=== PATIENT | female | born 1935 | race American Indian/Alaskan Native ===

== ENCOUNTER 2022-04-10 08:02 | Inpatient (IN) | payer MEDICARE ==
--- NOTE | 2022-04-10 10:28 | XRay Report ---
CHEST 1 VIEW 04/10/2022 9:18 AM INDICATION / CLINICAL INFORMATION: chest pain. COMPARISON: Radiograph 3:15 FINDINGS: SUPPORT DEVICES: None. HEART / MEDIASTINUM: Median sternotomy wires are present. There is moderate cardiomegaly. Central pul monary vascular prominence. LUNGS / PLEURA: Diffuse interstitial prominence as well as fissural thickening. No pneumothorax. ADDITIONAL FINDINGS: No significant additional findings. IMPRESSION: 1. Cardiomegaly with pulmonary edema, indicative of CHF. Superimposed pneumonia cannot be excluded. Signer Name: Elmo Mendez MD Signed: 04/10/2022 10:24 AM Workstation Name: [id number]
--- NOTE | 2022-04-10 10:36 | Emergency Department Report ---
<ALYSE CLOUDMALKA - Last Filed: 04/10/22 10:31> ED Chest Pain HPI - General Chief Complaint: Chest Pain Stated Complaint: HYPERTENSIVE CRISIS Time Seen by Provider: 04/10/22 09:37 Source: patient, EMS Mode of arrival: Stretcher Limitations: No Limitations - History of Present Illness Initial Comments: 86-year-old female with a history of COPD, CAD s/p open heart surgery and remote smoking history who now presents with shortness of breath associated with chest pressure that started this morning. Patient has history of end-stage renal disease started dialysis about a year ago. Patient reported that the pain start ed shortly when she was getting ready for dialysis this morning. Her daughter from [place] usually sent in uber Drive that take her to dialysis on every Wednesday and Fridays. This morning the daughter called and she told that daughter that she was not feeling well and could not breathe. And instead of the uber laundry route driver taking her to the dialysis they brought to the emergency room. Patient denies any fever or chills. No other modifying or associated factors noted. MD Complaint: chest pain, other (sob) Severity scale (0 -10): 0 - Related Data Home Medications Medication Instructions Recorded Confirmed Last Taken Aspirin [Aspirin BABY CHEW TAB] 162 mg PO QDAY 10/01/14 10/01/14 09/30/14 Atorvastatin [Lipitor] 20 mg PO QHS 10/01/14 10/01/14 09/30/14 Colchicine [Colcrys] 0.6 mg PO DAILY 10/01/14 10/01/14 09/30/14 Ergocalciferol [Vitamin D2] 1 cap PO QWEEK 10/01/14 10/01/14 09/30/14 Insulin Regular, Human [HumuLIN R] 15 units SUB-Q QAM 10/01/14 10/01/14 09/30/14 Insulin Regular, Human [HumuLIN R] 17 unit SUB-Q QHS 10/01/14 10/01/14 09/30/14 Metoprolol [Lopressor TAB] 50 mg PO BID 10/01/14 10/01/14 09/30/14 Valsartan/Hydrochlorothiazide 1 each PO QDAY 10/01/14 10/01/14 09/30/14 [Valsartan-Hctz 160-12.5 mg] amLODIPine [Norvasc] 10 mg PO DAILY 10/01/14 10/01/14 09/30/14 cloNIDine [Catapres] 0.2 mg PO BID 10/01/14 10/01/14 09/30/14 Previous Rx's Medication Instructions Recorded Last Taken Type Albuterol Sulfate [Ventolin HFA] 2 puff IH Q4H PRN #1 hfa.aer.ad 10/01/14 Unknown Rx levoFLOXacin [Levaquin] 250 mg PO QDAY #7 tablet 10/01/14 Unknown Rx predniSONE [Deltasone] 40 mg PO QDAY 5 Days tab 10/01/14 Unknown Rx Allergies Allergy/AdvReac Type Severity Reaction Status Date / Time codeine AdvReac Itching Verified 09/30/14 23:41 morphine AdvReac Itching Verified 09/30/14 23:41 Heart Score - HEART Score History: Slightly suspicious EKG: Non-specific Age: > 65 Risk factors: 1-2 risk factors Troponin: < normal limit HEART Score: 4 - EKG Read Time Time EKG Completed: 10:01 EKG Read Time: 10:13 - Critical Actions Critical Actions: 4-6 pts:12-16.6% risk of adverse cardiac event. Should be admitted ED Review of Systems Comment: All other systems reviewed and negative Respiratory: shortness of breath, SOB at rest Cardiovascular: chest pain, dyspnea on exertion ED Past Medical Hx - Past Medical History Hx Hypertension: Yes Hx Heart Attack/AMI: Yes Hx Diabetes: Yes Hx Renal Disease: Yes (HD [facility]) - Surgical History Hx Open Heart Surgery: Yes (CABG 2002) Hx Cholecystectomy: Yes Additional Surgical History: back surgery - Social History Smoking Status: Former Smoker Substance Use Type: None - Medications Home Medications: Home Medications Medication Instructions Recorded Confirmed Last Taken Type Albuterol Sulfate [Ventolin HFA] 2 puff IH Q4H PRN #1 hfa.aer.ad 10/01/14 Unknown Rx Aspirin [Aspirin BABY CHEW TAB] 162 mg PO QDAY 10/01/14 10/01/14 09/30/14 History Atorvastatin [Lipitor] 20 mg PO QHS 10/01/14 10/01/14 09/30/14 History Colchicine [Colcrys] 0.6 mg PO DAILY 10/01/14 10/01/14 09/30/14 History Ergocalciferol [Vitamin D2] 1 cap PO QWEEK 10/01/14 10/01/14 09/30/14 History Insulin Regular, Human [HumuLIN R] 15 units SUB-Q QAM 10/01/14 10/01/14 09/30/14 History Insulin Regular, Human [HumuLIN R] 17 unit SUB-Q QHS 10/01/14 10/01/14 09/30/14 History Metoprolol [Lopressor TAB] 50 mg PO BID 10/01/14 10/01/14 09/30/14 History Valsartan/Hydrochlorothiazide 1 each PO QDAY 10/01/14 10/01/14 09/30/14 History [Valsartan-Hctz 160-12.5 mg] amLODIPine [Norvasc] 10 mg PO DAILY 10/01/14 10/01/14 09/30/14 History cloNIDine [Catapres] 0.2 mg PO BID 10/01/14 10/01/14 09/30/14 History levoFLOXacin [Levaquin] 250 mg PO QDAY #7 tablet 10/01/14 Unknown Rx predniSONE [Deltasone] 40 mg PO QDAY 5 Days tab 10/01/14 Unknown Rx ED Physical Exam - General Limitations: No Limitations General appearance: alert, in no apparent distress - Head Head exam: Present: atraumatic, normal inspection - Eye Eye exam: Present: normal appearance Pupils: Present: normal accommodation - ENT ENT exam: Present: normal exam, normal orophraynx, mucous membranes dry - Neck Neck exam: Present: normal inspection. Absent: tenderness - Respiratory Respiratory exam: Present: respiratory distress, wheezes, accessory muscle use - Cardiovascular Cardiovascular Exam: Present: regular rate, normal rhythm, normal heart sounds - GI/Abdominal GI/Abdominal exam: Present: soft, normal bowel sounds. Absent: distended, tenderness - Extremities Exam Extremities exam: Present: normal inspection, normal capillary refill. Absent: tenderness, pedal edema - Back Exam Back exam: Absent: tenderness - Neurological Exam Neurological exam: Present: alert, oriented X3 - Psychiatric Psychiatric exam: Present: normal affect, normal mood - Skin Skin exam: Present: warm, normal color TOBY score - Toby Score Age > 65: (1) Yes Aspirin use within the Past 7 Days: (1) Yes 3 or more CAD Risk Factors: (1) Yes 2 or more Angina events in past 24 hrs: (0) No Known CAD with more than 50% Stenosis: (1) Yes Elevated Cardiac Markers: (0) No ST Deviation Greater than 0.5mm: (0) No TOBY Score: 4 ED Medical Decision Making - EKG Data -: EKG Interpreted by Me EKG shows normal: sinus rhythm, ST-T waves Rate: normal - EKG Data 04/10/22 10:38 Noted with normal sinus rhythm at a rate of 84 bpm, with nonspecific T wave abnormality in this abnormal ECG. - Medical Decision Making Here with shortness of breath--among differential diagnosis could be but not limited to acute exacerbation of COPD, myocardiac infarction, pulmonary embolism, acute exacerbation of asthma, pneumothorax, pneumonia or Viral or Bacterial Upper/Lower respiratory tract infection or other systemic infection.--To rule out the above will go ahead and order EKG, cardiac enzyme including troponin, BNP, CKMB, chest x-ray, CBC, CMP, UA and or D-dimer. In the meantime we will go ahead and treat with DuoNeb, 125 mg of Solu-Medrol, magnesium sulfate 2 g IV, and will monitor as likely cause to be acute COPD exacerbation. ED Disposition Clinical Impression: Wheezing Chest pain Qualifiers: Chest pain type: unspecified Qualified Code(s): R07.9 - Chest pain, unspecified Pulmonary edema Qualifiers: Chronicity: acute Qualified Code(s): J81.0 - Acute pulmonary edema Dyspnea Qualifiers: Dyspnea type: unspecified Qualified Code(s): R06.00 - Dyspnea, unspecified Disposition: ADMITTED INPATIENT Does the pt Need Aspirin: No Condition: Stable <PATRICIA SOLARES - Last Filed: 04/10/22 23:26> ED Review of Systems ROS: Stated complaint: HYPERTENSIVE CRISIS Other details as noted in HPI ED Course Vital Signs 04/10/22 04/10/22 04/10/22 08:06 08:18 08:31 Temperature 99.4 F Pulse Rate 98 H 85 89 Pulse Rate [ Anterior] Respiratory 20 19 24 Rate Respiratory Rate [Anterior] Blood Pressure 191/95 Blood Pressure 210/114 [Left] O2 Sat by Pulse 100 Oximetry 04/10/22 04/10/22 04/10/22 09:01 09:31 10:00 Temperature Pulse Rate 80 79 77 Pulse Rate [ Anterior] Respiratory 21 22 20 Rate Respiratory Rate [Anterior] Blood Pressure 179/112 190/89 190/89 Blood Pressure [Left] O2 Sat by Pulse Oximetry 04/10/22 04/10/22 04/10/22 10:31 11:01 11:31 Temperature Pulse Rate 76 78 77 Pulse Rate [ Anterior] Respiratory 22 12 24 Rate Respiratory Rate [Anterior] Blood Pressure 195/92 198/97 198/97 Blood Pressure [Left] O2 Sat by Pulse 100 100 99 Oximetry 04/10/22 04/10/22 04/10/22 12:01 12:30 12:31 Temperature Pulse Rate 75 77 Pulse Rate [ 70 Anterior] Respiratory 18 21 Rate Respiratory 18 Rate [Anterior] Blood Pressure 198/97 198/97 Blood Pressure [Left] O2 Sat by Pulse 100 100 Oximetry 04/10/22 04/10/22 04/10/22 13:01 13:30 14:01 Temperature Pulse Rate 83 80 81 Pulse Rate [ Anterior] Respiratory 12 15 21 Rate Respiratory Rate [Anterior] Blood Pressure 205/103 184/90 191/95 Blood Pressure [Left] O2 Sat by Pulse 100 100 100 Oximetry 04/10/22 04/10/22 04/10/22 14:31 15:01 15:31 Temperature Pulse Rate 81 77 82 Pulse Rate [ Anterior] Respiratory 19 22 15 Rate Respiratory Rate [Anterior] Blood Pressure 190/98 189/94 190/98 Blood Pressure [Left] O2 Sat by Pulse 100 100 100 Oximetry 04/10/22 04/10/22 04/10/22 16:01 17:01 18:01 Temperature Pulse Rate 78 86 80 Pulse Rate [ Anterior] Respiratory 17 24 17 Rate Respiratory Rate [Anterior] Blood Pressure 176/96 199/94 172/85 Blood Pressure [Left] O2 Sat by Pulse 100 94 95 Oximetry 04/10/22 04/10/22 04/10/22 19:00 19:01 19:05 Temperature 98.6 F Pulse Rate 81 81 Pulse Rate [ Anterior] Respiratory 21 20 Rate Respiratory Rate [Anterior] Blood Pressure 187/86 Blood Pressure 187/86 [Left] O2 Sat by Pulse 98 96 98 Oximetry 04/10/22 04/10/22 04/10/22 20:01 21:01 21:45 Temperature Pulse Rate 75 Pulse Rate [ Anterior] Respiratory Rate Respiratory Rate [Anterior] Blood Pressure 184/97 204/100 196/93 Blood Pressure [Left] O2 Sat by Pulse 97 94 Oximetry 04/10/22 22:01 Temperature Pulse Rate Pulse Rate [ Anterior] Respiratory Rate Respiratory Rate [Anterior] Blood Pressure 196/93 Blood Pressure [Left] O2 Sat by Pulse 95 Oximetry ED Medical Decision Making - Lab Data Result diagrams: 04/10/22 Unknown 04/10/22 Unknown Lab Results 04/10/22 04/10/22 04/10/22 Range/Units 14:26 15:45 18:25 Sodium 135 L (137-145) mmol/L Potassium 4.1 (3.6-5.0) mmol/L Chloride 95.7 L (98-107) mmol/L Carbon Dioxide 16 L (22-30) mmol/L Anion Gap 27 mmol/L BUN 51 H (7-17) mg/dL Creatinine 6.9 H (0.6-1.2) mg/dL Estimated GFR 7 ml/min BUN/Creatinine Ratio 7 % Glucose 234 H (65-100) mg/dL Calcium 9.4 (8.4-10.2) mg/dL Magnesium (1.7-2.3) mg/dL Total Bilirubin 0.80 (0.1-1.2) mg/dL AST 20 (5-40) units/L ALT 10 (7-56) units/L Alkaline Phosphatase 75 (35-129) units/L Troponin T 0.045 H 0.044 H (0.00-0.029) ng/mL NT-Pro-B Natriuret Pep 39183 H (0-900) pg/mL Total Protein 7.8 (6.3-8.2) g/dL Albumin 4.2 (3.9-5) g/dL Albumin/Globulin Ratio 1.2 % TSH (0.270-4.200) mlU/mL Free T4 (0.76-1.46) ng/dL 04/10/22 04/10/22 04/10/22 Range/Units 18:25 18:25 18:25 Sodium (137-145) mmol/L Potassium (3.6-5.0) mmol/L Chloride (98-107) mmol/L Carbon Dioxide (22-30) mmol/L Anion Gap mmol/L BUN (7-17) mg/dL Creatinine (0.6-1.2) mg/dL Estimated GFR ml/min BUN/Creatinine Ratio % Glucose (65-100) mg/dL Calcium (8.4-10.2) mg/dL Magnesium 2.70 H (1.7-2.3) mg/dL Total Bilirubin (0.1-1.2) mg/dL AST (5-40) units/L ALT (7-56) units/L Alkaline Phosphatase (35-129) units/L Troponin T 0.042 H (0.00-0.029) ng/mL NT-Pro-B Natriuret Pep (0-900) pg/mL Total Protein (6.3-8.2) g/dL Albumin (3.9-5) g/dL Albumin/Globulin Ratio % TSH 1.020 (0.270-4.200) mlU/mL Free T4 0.87 (0.76-1.46) ng/dL - Radiology Data Radiology results: report reviewed CHEST 1 VIEW 04/10/2022 9:18 AM INDICATION / CLINICAL INFORMATION: chest pain. COMPARISON: Radiograph 3:15 FINDINGS: SUPPORT DEVICES: None. HEART / MEDIASTINUM: Median sternotomy wires are present. There is moderate cardiomegaly. Central pulmonary vascular prominence. LUNGS / PLEURA: Diffuse interstitial prominence as well as fissural thickening. No pneumothorax. ADDITIONAL FINDINGS: No significant additional findings. IMPRESSION: 1. Cardiomegaly with pulmonary edema, indicative of CHF. Superimposed pneumonia cannot be excluded. Critical care attestation.: If time is entered above; I have spent that time in minutes in the direct care of this critically ill patient, excluding procedure time. ED Disposition Is pt being admited?: Yes
[2022-04-10] MEDS ORDERED: IPRATROPIUM/ALBUTEROL SULFATE 3 ML AMPUL.NEB IH ONE (10:43)
[2022-04-10] MEDS ORDERED: MAGNESIUM SULFATE 2 GM/50 ML BAG IV ONE (10:43)
[2022-04-10] MEDS ORDERED: methylPREDNISolone Sod Succinate 125 MG/2 ML INJ IV ONE (10:43)
[2022-04-10 12:40] LABS: Basophils # (Auto) 0.1 K/mm3 (0.0-0.1); Basophils % (Auto) 1.4 % (0.0-1.8); Eosinophils # (Auto) 0.1 K/mm3 (0.0-0.4); Eosinophils % (Auto) 0.7 % (0.0-4.3); Hematocrit 33.4 % (30.3-42.9); Hemoglobin 11.2 gm/dl (10.1-14.3); Lymphocytes # (Auto) 1.1 K/mm3 (1.2-5.4); Lymphocytes % (Auto) 11.8 % (13.4-35.0); Mean Corpuscular HGB Conc 34 % (30-34); Mean Corpuscular Volume 88 fl (79-97); Monocytes # (Auto) 0.5 K/mm3 (0.0-0.8); Monocytes % (Auto) 5.9 % (0.0-7.3); Platelet Count 254 K/mm3 (140-440); Red Blood Count 3.81 M/mm3 (3.65-5.03)
[2022-04-10 13:45] LABS: BUN/Creatinine Ratio TNR; Blood Urea Nitrogen TNR mg/dL (7-17); Calcium TNR mg/dL (8.4-10.2)
[2022-04-10 13:46] LABS: Alanine Aminotransferase TNR units/L (7-56); Albumin TNR g/dL (3.9-5)
[2022-04-10 13:47] LABS: Chol/HDL Ratio TNR %; HDL Cholesterol TNR mg/dL (40-59); Hemolysis Index TNR; LDL Cholesterol,Direct TNR mg/dL (50-130)
--- NOTE | 2022-04-10 18:36 | Emergency Department Report ---
ED Shortness of Breath HPI - General Chief Complaint: Chest Pain Stated Complaint: HYPERTENSIVE CRISIS Time Seen by Provider: 04/10/22 09:37 Source: patient, EMS Mode of arrival: Stretcher Limitations: No Limitations - History of Present Illness Initial Comments: 86-year female the past medical history of end-stage renal disease on dialysis Wednesday, Wednesday, diabetes, CAD with history of CABG, and previous cholecystectomy presents to the hospital with complaints of shortness of breath and chest tightness this morning. Patient was initially seen by Dr. Lewis without a clear disposition and I was asked to reevaluate and the patient by the charge nurse. At time of my evaluation patient reports that she is feeling better since her initial presentation. As documented by Dr. Lewis patient initially had wheezing and respiratory distress. She was treated for COPD with bronchodilators, magnesium, and Solu-Medrol. She is currently breathing at a n ormal rate with a room air saturation of 96%. Patient denies a known history of COPD, home oxygen use, wheezing, or bronchodilator use. Her chest tightness has improved with treatment. Her initial labs were hemolyzed and therefore I ordered a repeat. Chest x-ray significant for pulmonary edema. Patient also received IV labetalol with improvement of hypertension. patient's corporate communications associate is Dr. Wayne Mild troponin elevation noted but stable x2. Third troponin ordered. BNP and CMP ordered since initial sample was hemolyzed and not redrawn. - Related Data Home Medications Medication Instructions Recorded Confirmed Last Taken Aspirin [Aspirin BABY CHEW TAB] 162 mg PO QDAY 10/01/14 10/01/14 09/30/14 Atorvastatin [Lipitor] 20 mg PO QHS 10/01/14 10/01/14 09/30/14 Colchicine [Colcrys] 0.6 mg PO DAILY 10/01/14 10/01/14 09/30/14 Ergocalciferol [Vitamin D2] 1 cap PO QWEEK 10/01/14 10/01/14 09/30/14 Insulin Regular, Human [HumuLIN R] 15 units SUB-Q QAM 10/01/14 10/01/14 09/30/14 Insulin Regular, Human [HumuLIN R] 17 unit SUB-Q QHS 10/01/14 10/01/14 09/30/14 Metoprolol [Lopressor TAB] 50 mg PO BID 10/01/14 10/01/14 09/30/14 Valsartan/Hydrochlorothiazide 1 each PO QDAY 10/01/14 10/01/14 09/30/14 [Valsartan-Hctz 160-12.5 mg] amLODIPine [Norvasc] 10 mg PO DAILY 10/01/14 10/01/14 09/30/14 cloNIDine [Catapres] 0.2 mg PO BID 10/01/14 10/01/14 09/30/14 Previous Rx's Medication Instructions Recorded Last Taken Type Albuterol Sulfate [Ventolin HFA] 2 puff IH Q4H PRN #1 hfa.aer.ad 10/01/14 Unknown Rx levoFLOXacin [Levaquin] 250 mg PO QDAY #7 tablet 10/01/14 Unknown Rx predniSONE [Deltasone] 40 mg PO QDAY 5 Days tab 10/01/14 Unknown Rx Allergies Allergy/AdvReac Type Severity Reaction Status Date / Time codeine AdvReac Itching Verified 09/30/14 23:41 morphine AdvReac Itching Verified 09/30/14 23:41 ED Review of Systems ROS: Stated complaint: HYPERTENSIVE CRISIS Other details as noted in HPI Comment: All other systems reviewed and negative Respiratory: shortness of breath, SOB at rest Cardiovascular: chest pain, dyspnea on exertion ED Past Medical Hx - Past Medical History Hx Hypertension: Yes Hx Heart Attack/AMI: Yes Hx Diabetes: Yes Hx Renal Disease: Yes (HD ) - Surgical History Hx Open Heart Surgery: Yes (CABG 2002) Hx Cholecystectomy: Yes Additional Surgical History: back surgery - Social History Smoking Status: Former Smoker Substance Use Type: None - Medications Home Medications: Home Medications Medication Instructions Recorded Confirmed Last Taken Type Albuterol Sulfate [Ventolin HFA] 2 puff IH Q4H PRN #1 hfa.aer.ad 10/01/14 Unknown Rx Aspirin [Aspirin BABY CHEW TAB] 162 mg PO QDAY 10/01/14 10/01/14 09/30/14 History Atorvastatin [Lipitor] 20 mg PO QHS 10/01/14 10/01/14 09/30/14 History Colchicine [Colcrys] 0.6 mg PO DAILY 10/01/14 10/01/14 09/30/14 History Ergocalciferol [Vitamin D2] 1 cap PO QWEEK 10/01/14 10/01/14 09/30/14 History Insulin Regular, Human [HumuLIN R] 15 units SUB-Q QAM 10/01/14 10/01/14 09/30/14 History Insulin Regular, Human [HumuLIN R] 17 unit SUB-Q QHS 10/01/14 10/01/14 09/30/14 History Metoprolol [Lopressor TAB] 50 mg PO BID 10/01/14 10/01/14 09/30/14 History Valsartan/Hydrochlorothiazide 1 each PO QDAY 10/01/14 10/01/14 09/30/14 History [Valsartan-Hctz 160-12.5 mg] amLODIPine [Norvasc] 10 mg PO DAILY 10/01/14 10/01/14 09/30/14 History cloNIDine [Catapres] 0.2 mg PO BID 10/01/14 10/01/14 09/30/14 History levoFLOXacin [Levaquin] 250 mg PO QDAY #7 tablet 10/01/14 Unknown Rx predniSONE [Deltasone] 40 mg PO QDAY 5 Days tab 10/01/14 Unknown Rx ED Physical Exam - General Limitations: No Limitations General appearance: alert, in no apparent distress - Other Other exam information: General: No acute distress Head: Atraumatic Eyes: normal appearance ENT: Moist mucous membranes Neck: Normal appearance, no midline tenderness Chest: No tachypnea, no wheezing, bilateral crackles CV: Regular rate and rhythm Abdomen: Soft, normal bowel sounds, nontender, nondistended, no rebound or guarding Back: Normal inspection Extremity: No calf tenderness or leg edema Neuro: Alert O x 3, no facial asymmetry, speech clear, no gross motor sensory deficit Psych: Appropriate behavior Skin: No rash ED Course Vital Signs 04/10/22 04/10/22 04/10/22 08:06 08:18 08:31 Temperature 99.4 F Pulse Rate 98 H 85 89 Pulse Rate [ Anterior] Respiratory 20 19 24 Rate Respiratory Rate [Anterior] Blood Pressure 191/95 Blood Pressure 210/114 [Left] O2 Sat by Pulse 100 Oximetry 04/10/22 04/10/22 04/10/22 09:01 09:31 10:00 Temperature Pulse Rate 80 79 77 Pulse Rate [ Anterior] Respiratory 21 22 20 Rate Respiratory Rate [Anterior] Blood Pressure 179/112 190/89 190/89 Blood Pressure [Left] O2 Sat by Pulse Oximetry 04/10/22 04/10/22 04/10/22 10:31 11:01 11:31 Temperature Pulse Rate 76 78 77 Pulse Rate [ Anterior] Respiratory 22 12 24 Rate Respiratory Rate [Anterior] Blood Pressure 195/92 198/97 198/97 Blood Pressure [Left] O2 Sat by Pulse 100 100 99 Oximetry 04/10/22 04/10/22 04/10/22 12:01 12:30 12:31 Temperature Pulse Rate 75 77 Pulse Rate [ 70 Anterior] Respiratory 18 21 Rate Respiratory 18 Rate [Anterior] Blood Pressure 198/97 198/97 Blood Pressure [Left] O2 Sat by Pulse 100 100 Oximetry 04/10/22 04/10/22 04/10/22 13:01 13:30 14:01 Temperature Pulse Rate 83 80 81 Pulse Rate [ Anterior] Respiratory 12 15 21 Rate Respiratory Rate [Anterior] Blood Pressure 205/103 184/90 191/95 Blood Pressure [Left] O2 Sat by Pulse 100 100 100 Oximetry 04/10/22 04/10/22 04/10/22 14:31 15:01 15:31 Temperature Pulse Rate 81 77 82 Pulse Rate [ Anterior] Respiratory 19 22 15 Rate Respiratory Rate [Anterior] Blood Pressure 190/98 189/94 190/98 Blood Pressure [Left] O2 Sat by Pulse 100 100 100 Oximetry 04/10/22 04/10/22 04/10/22 16:01 19:00 19:05 Temperature 98.6 F Pulse Rate 78 81 Pulse Rate [ Anterior] Respiratory 17 21 Rate Respiratory Rate [Anterior] Blood Pressure 176/96 Blood Pressure 187/86 [Left] O2 Sat by Pulse 100 98 98 Oximetry - Consultations Consultation #1: 04/10/22 20:48 Case was discussed with corporate communications associate Belkys Iyer who agrees to admit patient for dialysis given signs of pulmonary edema and presentation with respiratory distress. Since symptoms have improved at this time we will perform dialysis tomorrow. Sodium bicarb 1300 mg 3 times daily recommend ED Medical Decision Making - Lab Data Result diagrams: 04/10/22 Unknown 04/10/22 Unknown - EKG Data -: EKG Interpreted by Me (Original EKG performed at 10 AM) EKG shows normal: sinus rhythm, ST-T waves (No STEMI) Rate: normal - Medical Decision Making 86-year female presents to the hospital early this morning with wheezing and shortness of breath responsive to treatment for COPD. Patient reports improvement in symptoms. At this time she has bilateral crackles and x-ray findings of pulmonary edema. Case discussed with corporate communications associate who agrees to perform dialysis tomorrow. Patient also complained of chest pain earlier today which is likely secondary to wheezing and shortness of breath episode. Troponin has remained stable without acute elevation in the ED with repeat blood draw. Case discussed with the hospitalist for admission. Bag Machine Tender recommends sodium bicarb tabs 1300 mg 3 times daily. Order placed Critical care attestation.: If time is entered above; I have spent that time in minutes in the direct care of this critically ill patient, excluding procedure time. ED Disposition Clinical Impression: Pulmonary edema, Wheezing Chest pain Qualifiers: Chest pain type: unspecified Qualified Code(s): R07.9 - Chest pain, unspecified Dyspnea Qualifiers: Dyspnea type: unspecified Qualified Code(s): R06.00 - Dyspnea, unspecified Disposition: ADMITTED INPATIENT Is pt being admited?: Yes Condition: Stable Instructions: Pulmonary Edema (ED) Time of Disposition: 20:46
[2022-04-10 19:00] LABS: Albumin 4.2 g/dL (3.9-5); Calcium 9.4 mg/dL (8.4-10.2)
--- NOTE | 2022-04-10 20:45 | History and Physical Report ---
History of Present Illness Chief complaint: I cannot breathe History of present illness: 86 YO Female with DM, ESRD on HD(M,W,F), CAD S/P CABG, PR, HTN, OA, Vascular Dementia, Cerebral Atherosclerosis presents to ED for evaluation. Patient reports "I cannot breathe". Patient states she has experienced shortness of b reath of the past 1 week with persistent and worsening symptoms over the same timeframe. Patient knowledges missed dialysis sessions. Patient reports decreased exercise tolerance, dyspnea on exertion, dyspnea at rest, orthopnea, paroxysmal nocturnal dyspnea, 10 pound weight gain over the past week. Patient knowledges increased nebulizer use without improvement in symptoms. Patient subsequent failed outpatient therapy. EMS was notified and upon arrival the patient was found to be in distress and subsequent transported to [facility] for further care and evaluation of the aforementioned symptoms. The patient was seen and evaluated emergency department. All lab and imaging studies reviewed. Patient found to have clinical symptoms consistent with new onset CHF decompensation as well as end-stage renal disease complicated by fluid overload secondary to missed dialysis, pulmonary edema, hyponatremia, metabolic acidosis. Patient mated to telemetry and initiated on CHF protocol. Cardiology team consulted in ED. Nephrology team consulted in ED for urgent dialysis. Patient denies fever, chills, chest pain, palpitation, adductive cough, skin rash, recent contact, known exposure to COVID-19. No prior admission for review. All medication listed at time of admission as reconciled. Advanced care planning conducted in ED. Past History Past Medical History: arthritis, CAD, ESRD, hypertension, other (See HPI) Past Surgical History: cholecystectomy, CABG, Other (Back surgery, dialysis access) Social history: . denies: smoking, alcohol abuse, prescription drug abuse Family history: diabetes, hypertension Medications and Allergies Allergies Allergy/AdvReac Type Severity Reaction Status Date / Time codeine AdvReac Itching Verified 09/30/14 23:41 morphine AdvReac Itching Verified 09/30/14 23:41 Home Medications Medication Instructions Recorded Confirmed Last Taken Type Albuterol Sulfate [Ventolin HFA] 2 puff IH Q4H PRN #1 hfa.aer.ad 10/01/14 Unknown Rx Aspirin [Aspirin BABY CHEW TAB] 162 mg PO QDAY 10/01/14 10/01/14 09/30/14 History Atorvastatin [Lipitor] 20 mg PO QHS 10/01/14 10/01/14 09/30/14 History Colchicine [Colcrys] 0.6 mg PO DAILY 10/01/14 10/01/14 09/30/14 History Ergocalciferol [Vitamin D2] 1 cap PO QWEEK 10/01/14 10/01/14 09/30/14 History Insulin Regular, Human [HumuLIN R] 15 units SUB-Q QAM 10/01/14 10/01/14 09/30/14 History Insulin Regular, Human [HumuLIN R] 17 unit SUB-Q QHS 10/01/14 10/01/14 09/30/14 History Metoprolol [Lopressor TAB] 50 mg PO BID 10/01/14 10/01/14 09/30/14 History Valsartan/Hydrochlorothiazide 1 each PO QDAY 10/01/14 10/01/14 09/30/14 History [Valsartan-Hctz 160-12.5 mg] amLODIPine [Norvasc] 10 mg PO DAILY 10/01/14 10/01/14 09/30/14 History cloNIDine [Catapres] 0.2 mg PO BID 10/01/14 10/01/14 09/30/14 History levoFLOXacin [Levaquin] 250 mg PO QDAY #7 tablet 10/01/14 Unknown Rx predniSONE [Deltasone] 40 mg PO QDAY 5 Days tab 10/01/14 Unknown Rx Active Meds: Active Medications Sodium Bicarbonate (Sodium Bicarbonate 650 Mg Tab) 1,300 mg PO TID DRAKE Review of Systems Constitutional: weight gain, no weight loss, no fever, no chills, no sweats Ears, nose, mouth and throat: no ear pain, no ear discharge, no decreased hearing, no nasal congestion, no sinus pressure Breasts: no change in shape, no swelling, no mass Cardiovascular: orthopnea, shortness of breath, dyspnea on exertion, paroxysmal nocturnal dyspnea, high blood pressure, leg edema, decreased exercise tolerance, no chest pain Respiratory: no cough, no cough with sputum, no excessive sputum Gastrointestinal: no abdominal pain, no nausea, no vomiting, no constipation Genitourinary Female: no pelvic pain, no flank pain, no dysuria, no urinary frequency, no urgency Rectal: no pain, no incontinence, no bleeding Musculoskeletal: no neck stiffness, no shooting arm pain, no arm numbness/tingling, no shooting leg pain, no redness of joints Integumentary: no rash, no pruritis, no wounds, no jaundice Neurological: no head injury, no paralysis, no weakness Psychiatric: no anxiety, no change in sleep habits, no change in appetite Endocrine: no cold intolerance, no polyphagia, no polyuria, no excessive sweating, no weight change Allergic/Immunologic: no allergic rhinitis, no wheezing Exam - Constitutional Vitals: Temp Pulse Resp BP Pulse Ox 98.6 F 81 21 187/86 98 04/10/22 19:00 04/10/22 19:00 04/10/22 19:00 04/10/22 19:00 04/10/22 19:05 General appearance: Present: mild distress - EENT Eyes: Present: PERRL ENT: hearing intact, clear oral mucosa - Neck Neck: Present: supple, normal ROM, masses or JVD - Respiratory Respiratory: bilateral: rales - Cardiovascular Heart Sounds: Present: S1 & S2. Absent: rub, click - Extremities Extremities: no ischemia Extremity abnormal: edema Peripheral Pulses: within normal limits - Abdominal General gastrointestinal: Present: soft, non-tender, non-distended, normal bowel sounds Female genitourinary: Present: normal - Integumentary Integumentary: Present: clear, warm, dry - Musculoskeletal Musculoskeletal: generalized weakness - Psychiatric Psychiatric: appropriate mood/affect, intact judgment & insight - Neurologic Neurologic: CNII-XII intact, moves all extremities HEART Score - HEART Score EKG: Non-specific Age: > 65 Risk factors: 1-2 risk factors Troponin: Troponin T TNR 04/10/22 Unknown Troponin: < normal limit - Critical Actions Critical Actions: 4-6 pts:12-16.6% risk of adverse cardiac event. Should be admitted Results - Labs CBC & Chem 7: 04/10/22 Unknown 04/10/22 Unknown Labs: Abnormal lab results 04/10/22 04/10/22 04/10/22 Range/Units 14:26 15:45 18:25 RDW (13.2-15.2) % Lymph % (Auto) (13.4-35.0) % Lymph # (Auto) (1.2-5.4) K/mm3 Seg Neutrophils % (40.0-70.0) % Sodium 135 L (137-145) mmol/L Chloride 95.7 L (98-107) mmol/L Carbon Dioxide 16 L (22-30) mmol/L BUN 51 H (7-17) mg/dL Creatinine 6.9 H (0.6-1.2) mg/dL Glucose 234 H (65-100) mg/dL Troponin T 0.045 H 0.044 H (0.00-0.029) ng/mL NT-Pro-B Natriuret Pep 03039 H (0-900) pg/mL 04/10/22 04/10/22 Range/Units 18:25 Unknown RDW 17.0 H (13.2-15.2) % Lymph % (Auto) 11.8 L (13.4-35.0) % Lymph # (Auto) 1.1 L (1.2-5.4) K/mm3 Seg Neutrophils % 80.2 H (40.0-70.0) % Sodium (137-145) mmol/L Chloride (98-107) mmol/L Carbon Dioxide (22-30) mmol/L BUN (7-17) mg/dL Creatinine (0.6-1.2) mg/dL Glucose (65-100) mg/dL Troponin T 0.042 H (0.00-0.029) ng/mL NT-Pro-B Natriuret Pep (0-900) pg/mL Assessment and Plan - Patient Problems (1) Systolic CHF Current Visit: Yes Status: Acute Qualifiers: Heart failure chronicity: acute Qualified Code(s): I50.21 - Acute systolic (congestive) heart failure Plan to address problem: Strict I/O, monitor urine output every shift, daily weight, afterload reduction, blood pressure control, thyroid panel, diuresis, magnesium level, echocardiogram ordered and pending at time of admission, cardiology team consulted. (2) End stage renal disease Current Visit: Yes Status: Acute Plan to address problem: Nephrology team consulted in ED, dialysis as per renal team, monitor fluid balance, avoid nephrotoxic agents. (3) Fluid overload Current Visit: Yes Status: Acute Plan to address problem: Monitor fluid balance, urgent dialysis. (4) Hyponatremia syndrome Current Visit: Yes Status: Acute Plan to address problem: Supportive care, BMP, repeat BMP in AM. (5) Metabolic acidosis Current Visit: Yes Status: Acute Plan to address problem: Bicarbonate therapy. Nephrology team consulted. (6) Vascular dementia Current Visit: Yes Status: Acute Qualifiers: Dementia behavioral disturbance: without behavioral disturbance Qualified Code(s): F01.50 - Vascular dementia without behavioral disturbance Plan to address problem: Verbal prompting, verbal redirection, benzodiazepine therapy as clinically indicated. (7) Cerebral atherosclerosis Current Visit: Yes Status: Acute Plan to address problem: Risk factor reduction, antiplatelet therapy as clinically indicated. (8) Pulmonary edema Current Visit: Yes Status: Acute Qualifiers: Chronicity: acute Qualified Code(s): J81.0 - Acute pulmonary edema Plan to address problem: Urgent dialysis, diuretic therapy, supportive care, repeat chest x-ray in a.m. as clinically indicated. Supplemental oxygen, pulse oximetry. (9) Hypertension Current Visit: Yes Status: Acute Qualifiers: Hypertension type: primary hypertension Qualified Code(s): I10 - Essential (primary) hypertension Plan to address problem: Monitor blood pressure every shift, continue medical management. (10) Diabetes Current Visit: Yes Status: Acute Plan to address problem: Consistent carbohydrate diet, Accu-Chek, insulin protocol, hypoglycemia protocol. (11) Coronary artery disease Current Visit: Yes Status: Acute Plan to address problem: Risk factor reduction therapy, antiplatelet therapy as clinically indicated. (12) DVT prophylaxis Current Visit: Yes Status: Acute Plan to address problem: SCD to bilateral lower extremities while in bed (13) Advance care planning Current Visit: Yes Status: Acute Plan to address problem: Disease education done, care plan discussed, diagnoses discussed, prognosis discussed, patient is full code. +30 minutes. (14) Preventative health care Current Visit: Yes Status: Acute Plan to address problem: Patient counseled regarding home safety precautions, risk factor reduction, outpatient follow-up with primary care physician for all age and risk factor appropriate screening test. +30 minutes.
[2022-04-10] MEDS ORDERED: MORPHINE 4 MG/1 ML INJ IV PRN (20:46)
[2022-04-10] MEDS ORDERED: ALBUTEROL 2.5 MG/3 ML NEBU IH PRN (20:46)
[2022-04-10] MEDS ORDERED: ONDANSETRON 4 MG/2 ML INJ IV PRN (20:46)
[2022-04-10] MEDS ORDERED: ACETAMINOPHEN 325 MG TAB PO PRN (20:46)
[2022-04-10] MEDS ORDERED: DEXTROSE 50% IN WATER (25GM) 50 ML SYRINGE IV PRN (20:58)
[2022-04-10] MEDS: cloNIDine 0.2 MG TAB PO SCH (21:45)
[2022-04-10] MEDS: METOPROLOL TARTRATE 50 MG TAB PO SCH (21:48)
[2022-04-10 21:55] LABS: Free T4 (Free Thyroxine) 0.87 ng/dL (0.76-1.46)
[2022-04-10] MEDS: INSULIN LISPRO 100 UNIT/ML SUB-Q SCH (22:06)
[2022-04-11] MEDS: FUROSEMIDE 20 MG/2 ML INJ IV SCH ×2 (06:15→17:13)
[2022-04-11] MEDS: oxyCODONE /ACETAMINOPHEN 5-325MG TAB PO PRN (06:51)
[2022-04-11 07:12] LABS: Calcium 9.1 mg/dL (8.4-10.2)
[2022-04-11] MEDS: INSULIN LISPRO 100 UNIT/ML SUB-Q SCH ×4 (08:00→21:55)
[2022-04-11] MEDS ORDERED: SODIUM CHLORIDE 0.9% 100 ML IV PRN (09:07)
[2022-04-11] MEDS ORDERED: COLCHICINE 0.6 MG TAB PO SCH (10:00)
--- NOTE | 2022-04-11 10:00 | Progress Note ---
Assessment and Plan Assessment and plan: 86 YO Female with DM, ESRD on HD(M,W,F), CAD S/P CABG, DC, HTN, OA, Vascular Dementia, Cerebral Atherosclerosis presents to ED for evaluation of shortness of breath of the past 1 week secondary to missed dialysis sessions. Patient found to have clinical symptoms consistent with end-stage renal disease complicated by fluid overload secondary to missed dialysis/pulmonary edema. ESRD Volume overload/pulmonary edema Hyponatremia Vascular dementia Cerebral atherosclerosis Hypertension Diabetes mellitus type 2 Coronary artery disease 04/11/2022. The patient will receive hemodialysis per nephrology recommendations. Follow-up echocardiogram to assess left ventricular function. I do not suspect the patient has acute new onset CHF and the volume overload/pulmonary edema is secondary to missed hemodialysis. However, as noted above, we will follow-up echocardiogram. History Interval history: No new issues overnight Hospitalist Physical - Constitutional Vitals: Temp Pulse Resp BP Pulse Ox 97.7 F 67 16 127/52 100 04/11/22 03:46 04/11/22 03:46 04/11/22 03:46 04/11/22 03:46 04/11/22 09:16 General appearance: Present: no acute distress - EENT Eyes: Present: PERRL, EOM intact ENT: hearing intact, clear oral mucosa, dentition normal - Neck Neck: Present: supple, normal ROM - Respiratory Respiratory effort: normal Respiratory: bilateral: CTA - Cardiovascular Rhythm: regular Heart Sounds: Present: S1 & S2. Absent: gallop, rub - Extremities Extremities: no ischemia, No edema, Full ROM - Abdominal General gastrointestinal: soft, non-tender, non-distended, normal bowel sounds - Integumentary Integumentary: Present: clear, warm, dry - Neurologic Neurologic: CNII-XII intact, moves all extremities HEART Score - HEART Score EKG: Non-specific Age: > 65 Risk factors: 1-2 risk factors Troponin: Troponin T TNR 04/10/22 Unknown Troponin: < normal limit - Critical Actions Critical Actions: 4-6 pts:12-16.6% risk of adverse cardiac event. Should be admitted Results - Labs CBC & Chem 7: 04/10/22 Unknown 04/11/22 05:47 Labs: Laboratory Last Values WBC 8.9 K/mm3 (4.5-11.0) 04/10/22 Unknown RBC 3.81 M/mm3 (3.65-5.03) 04/10/22 Unknown Hgb 11.2 gm/dl (10.1-14.3) 04/10/22 Unknown Hct 33.4 % (30.3-42.9) 04/10/22 Unknown MCV 88 fl (79-97) 04/10/22 Unknown MCH 29 pg (28-32) 04/10/22 Unknown MCHC 34 % (30-34) 04/10/22 Unknown RDW 17.0 % (13.2-15.2) H 04/10/22 Unknown Plt Count 254 K/mm3 (140-440) 04/10/22 Unknown Lymph % (Auto) 11.8 % (13.4-35.0) L 04/10/22 Unknown [place] % (Auto) 5.9 % (0.0-7.3) 04/10/22 Unknown Eos % (Auto) 0.7 % (0.0-4.3) 04/10/22 Unknown Baso % (Auto) 1.4 % (0.0-1.8) 04/10/22 Unknown Lymph # (Auto) 1.1 K/mm3 (1.2-5.4) L 04/10/22 Unknown [place] # (Auto) 0.5 K/mm3 (0.0-0.8) 04/10/22 Unknown Eos # (Auto) 0.1 K/mm3 (0.0-0.4) 04/10/22 Unknown Baso # (Auto) 0.1 K/mm3 (0.0-0.1) 04/10/22 Unknown Seg Neutrophils % 80.2 % (40.0-70.0) H 04/10/22 Unknown Seg Neutrophils # 7.2 K/mm3 (1.8-7.7) 04/10/22 Unknown Sodium 136 mmol/L (137-145) L 04/11/22 05:47 Potassium 4.3 mmol/L (3.6-5.0) 04/11/22 05:47 Chloride 98.7 mmol/L (98-107) 04/11/22 05:47 Carbon Dioxide 19 mmol/L (22-30) L 04/11/22 05:47 Anion Gap 23 mmol/L 04/11/22 05:47 BUN 59 mg/dL (7-17) H 04/11/22 05:47 Creatinine 7.7 mg/dL (0.6-1.2) H 04/11/22 05:47 Estimated GFR 6 ml/min 04/11/22 05:47 BUN/Creatinine Ratio 8 % 04/11/22 05:47 Glucose 108 mg/dL (65-100) H 04/11/22 05:47 POC Glucose 260 mg/dL (70-105) H 04/10/22 21:54 Calcium 9.1 mg/dL (8.4-10.2) 04/11/22 05:47 Magnesium 2.70 mg/dL (1.7-2.3) H 04/10/22 18:25 Total Bilirubin TNR 04/10/22 Unknown AST TNR 04/10/22 Unknown ALT TNR 04/10/22 Unknown Alkaline Phosphatase TNR 04/10/22 Unknown Troponin T TNR 04/10/22 Unknown NT-Pro-B Natriuret Pep 76679 pg/mL (0-900) H 04/10/22 18:25 Total Protein TNR 04/10/22 Unknown Albumin TNR 04/10/22 Unknown Albumin/Globulin Ratio TNR 04/10/22 Unknown Triglycerides TNR 04/10/22 Unknown Cholesterol TNR 04/10/22 Unknown LDL Cholesterol Direct TNR 04/10/22 Unknown HDL Cholesterol TNR 04/10/22 Unknown Cholesterol/HDL Ratio TNR 04/10/22 Unknown TSH 1.020 mlU/mL (0.270-4.200) 04/10/22 18:25 Free T4 0.87 ng/dL (0.76-1.46) 04/10/22 18:25 Simon/IV: Voiding Method Toilet Active Medications - Current Medications Current Medications: Generic Name Dose Route Start Last Admin Trade Name Freq PRN Reason Stop Dose Admin Acetaminophen 650 mg 04/10/22 20:46 Acetaminophen 325 Mg Tab PO Q4H PRN Pain MILD(1-3)/Fever >100.5/SMITH Albuterol 2.5 mg 04/10/22 20:46 Albuterol 2.5 Mg/3 Ml Nebu IH Q4HRT PRN Shortness Of Breath Amlodipine Besylate 10 mg 04/11/22 10:00 Amlodipine 10 Mg Tab PO DAILY DRAKE Aspirin 162 mg 04/11/22 10:00 Aspirin 81 Mg Tab Chew PO QDAY DRAKE Atorvastatin Calcium 20 mg 04/10/22 22:00 04/10/22 21:48 Atorvastatin 40 Mg Tab PO 20 mg QHS DRAKE Administration Clonidine HCl 0.2 mg 04/10/22 22:00 04/10/22 21:45 Clonidine 0.2 Mg Tab PO 0.2 mg BID DRAKE Administration Colchicine 0.6 mg 04/11/22 10:00 Colchicine 0.6 Mg Tab PO DAILY DRAKE Dextrose 0 ml 04/10/22 20:58 Dextrose 50% In Water (25gm) 50 Ml Syringe IV Q30MIN PRN Hypoglycemia Protocol Ergocalciferol unit 04/17/22 10:00 Ergocalciferol (Vit D2) 50,000 Unit Cap PO QWEEK DRAKE Furosemide 20 mg 04/11/22 06:00 04/11/22 06:15 Furosemide 20 Mg/2 Ml Inj IV 20 mg BID@0600,1800 DRAKE Administration Sodium Chloride 100 mls @ 999 mls/hr 04/11/22 09:07 Nacl 0.9% IV DRU PRN Hypotension Insulin Human Lispro 0 unit 04/10/22 22:00 04/10/22 22:06 Insulin Lispro 100 Unit/Ml SUB-Q 4 unit ACHS DRAKE Administration Protocol Metoprolol Tartrate 50 mg 04/10/22 22:00 04/10/22 21:48 Metoprolol Tartrate 50 Mg Tab PO 50 mg BID@0800,1700 DRAKE Administration Ondansetron HCl 4 mg 04/10/22 20:46 Ondansetron 4 Mg/2 Ml Inj IV Q8H PRN Nausea And Vomiting Oxycodone/Acetaminophen 1 tab 04/10/22 20:46 04/11/22 06:51 Oxycodone /Acetaminophen 5-325mg Tab PO 1 tab Q6H PRN Administration Pain, Moderate (4-6) Sodium Bicarbonate 1,300 mg 04/11/22 08:00 Sodium Bicarbonate 650 Mg Tab PO TID DRAKE Sodium Chloride 10 ml 04/10/22 22:00 04/10/22 21:51 Sodium Chloride 0.9% 10 Ml Flush Syringe IV 10 ml BID DRAKE Administration Sodium Chloride 10 ml 04/10/22 20:46 Sodium Chloride 0.9% 10 Ml Flush Syringe IV PRN PRN LINE FLUSH Valsartan 160 mg 04/11/22 10:00 Valsartan 160mg Tab PO QDAY DRAKE
[2022-04-11] MEDS: SODIUM BICARBONATE 650 MG TAB PO SCH ×3 (10:29→21:55)
[2022-04-11] MEDS: VALSARTAN 160MG TAB PO SCH (10:29)
[2022-04-11] MEDS: METOPROLOL TARTRATE 50 MG TAB PO SCH ×2 (10:29→17:13)
[2022-04-11] MEDS: cloNIDine 0.2 MG TAB PO SCH ×2 (10:30→21:55)
[2022-04-11] MEDS: amLODIPine 10 MG TAB PO SCH (10:30)
[2022-04-11] MEDS: ASPIRIN 81 MG TAB CHEW PO SCH (10:31)
[2022-04-11 12:47] LABS: Hepatitis B Surface Antigen Non-Reactive (Negative); Hepatitis C Virus Antibody Non-Reactive (NonReactive)
--- NOTE | 2022-04-11 14:45 | Event Note ---
Date: 04/11/22 Upon assessment, pt states she is followed by Dr. Boone with [facility]. Will transfer to their service for further cardiac mgmt.
--- NOTE | 2022-04-11 21:34 | Consultation ---
History of Present Illness - Reason for Consult Consult date: 04/11/22 end stage renal disease - History of Present Illness This is a 86-year-old woman with end-stage renal disease on hemodialysis MWF, diabetes, hypertension, coronary artery disease status post CABG who presented to the emergency department with shortness of breath for the past 1 week. She also noted missing several dialysis sessions. Nephrology was consulted for ESRD management. Patient denies chest pain, presyncope and syncope. Past History Past Medical History: arthritis, CAD, ESRD, hypertension, other (See HPI) Past Surgical History: cholecystectomy, CABG, Other (Back surgery, dialysis access) Social history: . denies: smoking, alcohol abuse, prescription drug abuse Family history: diabetes, hypertension Medications and Allergies Allergies Allergy/AdvReac Type Severity Reaction Status Date / Time codeine AdvReac Itching Verified 09/30/14 23:41 morphine AdvReac Itching Verified 09/30/14 23:41 Home Medications Medication Instructions Recorded Confirmed Last Taken Type Albuterol Sulfate [Ventolin HFA] 2 puff IH Q4H PRN #1 hfa.aer.ad 10/01/14 04/11/22 Unknown Rx Aspirin [Aspirin BABY CHEW TAB] 162 mg PO QDAY 10/01/14 04/11/22 09/30/14 History Atorvastatin [Lipitor] 20 mg PO QHS 10/01/14 04/11/22 09/30/14 History Colchicine [Colcrys] 0.6 mg PO DAILY 10/01/14 04/11/22 09/30/14 History Ergocalciferol [Vitamin D2] 1 cap PO QWEEK 10/01/14 04/11/22 09/30/14 History Insulin Regular, Human [HumuLIN R] 15 units SUB-Q QAM 10/01/14 04/11/22 09/30/14 History Insulin Regular, Human [HumuLIN R] 17 unit SUB-Q QHS 10/01/14 04/11/22 09/30/14 History Metoprolol [Lopressor TAB] 50 mg PO BID 10/01/14 04/11/22 09/30/14 History Valsartan/Hydrochlorothiazide 1 each PO QDAY 10/01/14 04/11/22 09/30/14 History [Valsartan-Hctz 160-12.5 mg] amLODIPine [Norvasc] 10 mg PO DAILY 10/01/14 04/11/22 09/30/14 History cloNIDine [Catapres] 0.2 mg PO BID 10/01/14 04/11/22 09/30/14 History levoFLOXacin [Levaquin] 250 mg PO QDAY #7 tablet 10/01/14 04/11/22 Unknown Rx predniSONE [Deltasone] 40 mg PO QDAY 5 Days tab 10/01/14 04/11/22 Unknown Rx Active Meds: Active Medications Acetaminophen (Acetaminophen 325 Mg Tab) 650 mg PO Q4H PRN PRN Reason: Pain MILD(1-3)/Fever >100.5/SMITH Albuterol (Albuterol 2.5 Mg/3 Ml Nebu) 2.5 mg IH Q4HRT PRN PRN Reason: Shortness Of Breath Amlodipine Besylate (Amlodipine 10 Mg Tab) 10 mg PO DAILY [facility] Last Admin: 04/11/22 10:30 Dose: 10 mg Aspirin (Aspirin 81 Mg Tab Chew) 162 mg PO QDAY [facility] Last Admin: 04/11/22 10:31 Dose: 162 mg Atorvastatin Calcium (Atorvastatin 40 Mg Tab) 20 mg PO QHS [facility] Last Admin: 04/10/22 21:48 Dose: 20 mg Clonidine HCl (Clonidine 0.2 Mg Tab) 0.2 mg PO BID [facility] Last Admin: 04/11/22 10:30 Dose: 0.2 mg Colchicine (Colchicine 0.6 Mg Tab) 0.6 mg PO DAILY [facility] Last Admin: 04/11/22 17:13 Dose: 0.6 mg Dextrose (Dextrose 50% In Water (25gm) 50 Ml Syringe) 0 ml IV Q30MIN PRN; Protocol PRN Reason: Hypoglycemia Ergocalciferol (Ergocalciferol (Vit D2) 50,000 Unit Cap) 50,000 unit PO Sa [facility] Furosemide (Furosemide 20 Mg/2 Ml Inj) 20 mg IV BID@0600,1800 [facility] Last Admin: 04/11/22 17:13 Dose: 20 mg Sodium Chloride (Nacl 0.9%) 100 mls @ 999 mls/hr IV DRU PRN PRN Reason: Hypotension Insulin Human Lispro (Insulin Lispro 100 Unit/Ml) 0 unit SUB-Q ACHS DRAKE; P rotocol Last Admin: 04/11/22 16:00 Dose: Not Given Metoprolol Tartrate (Metoprolol Tartrate 50 Mg Tab) 50 mg PO BID@0800,1700 [facility] Last Admin: 04/11/22 17:13 Dose: 50 mg Ondansetron HCl (Ondansetron 4 Mg/2 Ml Inj) 4 mg IV Q8H PRN PRN Reason: Nausea And Vomiting Oxycodone/Acetaminophen (Oxycodone /Acetaminophen 5-325mg Tab) 1 tab PO Q6H PRN PRN Reason: Pain, Moderate (4-6) Last Admin: 04/11/22 06:51 Dose: 1 tab Sodium Bicarbonate (Sodium Bicarbonate 650 Mg Tab) 1,300 mg PO TID [facility] Last Admin: 04/11/22 12:59 Dose: 1,300 mg Sodium Chloride (Sodium Chloride 0.9% 10 Ml Flush Syringe) 10 ml IV BID [facility] Last Admin: 04/11/22 10:36 Dose: 10 ml Sodium Chloride (Sodium Chloride 0.9% 10 Ml Flush Syringe) 10 ml IV PRN PRN PRN Reason: LINE FLUSH Valsartan (Valsartan 160mg Tab) 160 mg PO QDAY [facility] Last Admin: 04/11/22 10:29 Dose: 160 mg Review of Systems All systems: negative Respiratory: shortness of breath Exam - Vital Signs Vital signs: Vital Signs Temp Pulse Resp BP Pulse Ox 99.4 F 98 H 20 210/114 100 04/10/22 08:06 04/10/22 08:06 04/10/22 08:06 04/10/22 08:06 04/10/22 08:06 - Physical Exam Narrative exam: Constitutional: no acute distress Head: NC/AT Neck: supple Lungs: clear to auscultation CV: RRR, no M/R/G Abdomen: soft, non-tender, bowel sounds present Back: nontender Extremities: no edema, pulses WNL Skin: intact Neuro: no focal deficits, alert and oriented x4 Results - Lab Results 04/10/22 Unknown 04/11/22 05:47 Most recent lab results Calcium 9.1 mg/dL (8.4-10.2) 04/11/22 05:47 Magnesium 2.70 mg/dL (1.7-2.3) H 04/10/22 18:25 Assessment and Plan End-stage renal disease on hemodialysis Essential hypertension Anemia of ESRD Hyperphosphatemia Hyperparathyroidism Hemodialysis today Assess daily for needs for additional sessions of dialysis Continue antihypertensives Hold antihypertensives on hemodialysis days for systolics less than 160 Continue binders Epogen with HD as needed Renally dose medications ESRD diet with 1.2-1. 4 g/kg/d protein intake Recommend avoiding chronic use of colchicine
[2022-04-11] MEDS ORDERED: ERGOCALCIFEROL (VIT D2) 50,000 UNIT CAP PO SCH (22:00)
[2022-04-12] MEDS: oxyCODONE /ACETAMINOPHEN 5-325MG TAB PO PRN (00:09)
[2022-04-12] MEDS: cloNIDine 0.2 MG TAB PO SCH ×2 (04:23→11:51)
[2022-04-12] MEDS: FUROSEMIDE 20 MG/2 ML INJ IV SCH (05:53)
--- NOTE | 2022-04-12 07:30 | Discharge Summary ---
Providers - Providers Date of Admission: 04/10/22 20:47 Date of discharge: 04/12/22 Attending physician: ELY HERRMANN 04/10/22 20:21 Consult to Physician [CONS] Urgent Comment: Consulting Provider: VALORIE COLLINS Physician Instructions: Reason For Exam: esrd, missed dialysis, pulm edema 04/10/22 20:46 Consult to Physician [CONS] Routine Comment: Consulting Provider: EMILIANO TRIVEDI Physician Instructions: Reason For Exam: chf 04/11/22 04:30 Consult to Dietitian/Nutrition [CONS] Routine Physician Instructions: Reason For Exam: Reason for Consult: Poor oral intake 04/11/22 14:46 Consult to Cardiology [CONS] Routine Consulting Provider: NATHALY HILARIO Reason For Exam: [facility] consulted for CHF, pt followed by Dr Hilario Primary care physician: MICHELLE SHUKLA Hospitalization Reason for admission: missed HD Condition: Stable Hospital course: 86 YO Female with DM, ESRD on HD(M,W,F), CAD S/P CABG, [place], HTN, OA, Vascular Dementia, Cerebral Atherosclerosis presents to ED for evaluation of shortness of breath of the past 1 week secondary to missed dialysis sessions. Patient found to have clinical symptoms consistent with end-stage renal disease complicated by fluid overload secondary to missed dialysis/pulmonary edema. The patient was admitted with diagnosis below: ESRD Volume overload/pulmonary edema Hyponatremia Vascular dementia Cerebral atherosclerosis Hypertension Diabetes mellitus type 2 Coronary artery disease 04/11/2022. The patient will receive hemodialysis per nephrology recommendations. Follow-up echocardiogram to assess left ventricular function. I do not suspect the patient has acute new onset CHF and the volume overload/pulmonary edema is secondary to missed hemodialysis. However, as noted above, we will follow-up echocardiogram. 04/12/2022. Patient received hemodialysis and had resolution of volume overload/pulmonary edema. Echocardiogram was completed and can be followed up as an outpatient. Patient is back to baseline respiratory status. Patient is felt to have received maximal hospital benefit and will be discharged home. Dedicated discharge time 32 minutes Final Discharge Diagnosis (Prints w/discharge instructions): ESRD with missed HD. Medical noncompliance. Volume overload/pulmonary edema. Hyponatremia. Vascular dementia. Cerebral atherosclerosis. Hypertension. Diabetes mellitus type 2. Coronary artery disease Core Measure Documentation - Palliative Care Palliative Care/ Comfort Measures: Not Applicable - Core Measures Any of the following diagnoses?: none Exam - Constitutional Vitals: Temp Pulse Resp BP Pulse Ox 98.6 F 62 16 170/79 100 04/12/22 04:03 04/12/22 04:03 04/12/22 04:03 04/12/22 04:35 04/12/22 04:03 General appearance: Present: no acute distress, well-nourished - EENT Eyes: Present: PERRL ENT: hearing intact, clear oral mucosa - Neck Neck: Present: supple, normal ROM - Respiratory Respiratory effort: normal Respiratory: bilateral: CTA - Cardiovascular Heart Sounds: Present: S1 & S2. Absent: rub, click - Extremities Extremities: pulses symmetrical, No edema Peripheral Pulses: within normal limits - Abdominal General gastrointestinal: Present: soft, non-tender, non-distended, normal bowel sounds Female genitourinary: Present: normal - Integumentary Integumentary: Present: clear, warm, dry - Musculoskeletal Musculoskeletal: gait normal, strength equal bilaterally - Psychiatric Psychiatric: appropriate mood/affect, intact judgment & insight - Neurologic Neurologic: CNII-XII intact, moves all extremities Plan Activity: advance as tolerated Weight Bearing Status: Weight Bear as Tolerated Diet: renal
[2022-04-12] MEDS: INSULIN LISPRO 100 UNIT/ML SUB-Q SCH ×2 (08:19→11:30)
[2022-04-12] MEDS: METOPROLOL TARTRATE 50 MG TAB PO SCH (08:41)
[2022-04-12 11:44] VITALS: BP 165/75
[2022-04-12] MEDS: VALSARTAN 160MG TAB PO SCH (11:50)
[2022-04-12] MEDS: amLODIPine 10 MG TAB PO SCH (11:51)
[2022-04-12] MEDS: ASPIRIN 81 MG TAB CHEW PO SCH (11:51)
--- NOTE | 2022-04-12 18:42 | Progress Note ---
Assessment and Plan End-stage renal disease on hemodialysis Essential hypertension Anemia of ESRD Hyperphosphatemia Hyperparathyroidism Continue HD TTS Assess daily for needs for additional sessions of dialysis Continue antihypertensives Hold antihypertensives on hemodialysis days for systolics less than 160 Continue binders Epogen with HD as needed Renally dose medications ESRD diet with 1.2-1. 4 g/kg/d protein intake Recommend avoiding chronic use of colchicine Subjective Date of service: 04/12/22 Principal diagnosis: Shortness of breath Interval history: Resting in bed Vitals, labs and I/os reviewed Interdisciplinary notes and consults reviewed Objective - Vital Signs Vital signs: Vital Signs - 12hr 04/12/22 04/12/22 04/12/22 07:50 08:41 09:44 Temperature 98.0 F Pulse Rate 61 61 Respiratory 16 Rate Blood Pressure 128/50 128/50 O2 Sat by Pulse 94 97 Oximetry 04/12/22 11:13 Temperature 98.0 F Pulse Rate 73 Respiratory 16 Rate Blood Pressure 165/75 O2 Sat by Pulse 98 Oximetry - Lab 04/10/22 Unknown 04/11/22 05:47 Most recent lab results Calcium 9.1 mg/dL (8.4-10.2) 04/11/22 05:47 Magnesium 2.70 mg/dL (1.7-2.3) H 04/10/22 18:25 Medications & Allergies - Medications Allergies/Adverse Reactions: Allergies codeine Adverse Reaction (Verified 09/30/14 23:41) Itching morphine Adverse Reaction (Verified 09/30/14 23:41) Itching Home Medications: Home Medications Medication Instructions Recorded Confirmed Last Taken Type Albuterol Sulfate [Ventolin HFA] 2 puff IH Q4H PRN #1 hfa.aer.ad 10/01/14 04/11/22 Unknown Rx Aspirin [Aspirin BABY CHEW TAB] 162 mg PO QDAY 10/01/14 04/11/22 09/30/14 History Atorvastatin [Lipitor] 20 mg PO QHS 10/01/14 04/11/22 09/30/14 History Colchicine [Colcrys] 0.6 mg PO DAILY 10/01/14 04/11/22 09/30/14 History Ergocalciferol [Vitamin D2] 1 cap PO QWEEK 10/01/14 04/11/22 09/30/14 History Insulin Regular, Human [HumuLIN R] 15 units SUB-Q QAM 10/01/14 04/11/22 09/30/14 History Insulin Regular, Human [HumuLIN R] 17 unit SUB-Q QHS 10/01/14 04/11/22 09/30/14 History Metoprolol [Lopressor TAB] 50 mg PO BID 10/01/14 04/11/22 09/30/14 History Valsartan/Hydrochlorothiazide 1 each PO QDAY 10/01/14 04/11/22 09/30/14 History [Valsartan-Hctz 160-12.5 mg] amLODIPine 10 mg PO DAILY 10/01/14 04/11/22 09/30/14 History cloNIDine [Catapres] 0.2 mg PO BID 10/01/14 04/11/22 09/30/14 History levoFLOXacin [Levaquin TAB] 250 mg PO QDAY #7 tablet 10/01/14 04/11/22 Unknown Rx predniSONE [Deltasone] 40 mg PO QDAY 5 Days tab 10/01/14 04/11/22 Unknown Rx
--- NOTE | 2022-04-15 13:51 | Electrocardiograph Report ---
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
--- NOTE | 2022-04-15 14:07 | Electrocardiograph Report ---
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
[2022-04-17] MEDS ORDERED: ERGOCALCIFEROL (VIT D2) 50,000 UNIT CAP PO SCH (10:00)
== END 2022-04-12 13:00 | disposition home or self-care (01) | DRG 640 ==
LOC: ED 08:02 → 4A 20:47
PROVIDERS: ADMIT Internal Medicine; ATTEND Hospitalist
PROC: 5A1D70Z Performance of Urinary Filtration, Intermittent, Less than 6 Hours Per Day (ICD-10-PCS; principal; 2022-04-11)
DX: E87.70 Fluid overload, unspecified (principal); I50.21 Acute systolic (congestive) heart failure; N18.6 End stage renal disease; E87.1 Hypo-osmolality and hyponatremia; E87.2 Acidosis; J44.9 Chronic obstructive pulmonary disease, unspecified; I25.10 Atherosclerotic heart disease of native coronary artery without angina pectoris; I25.2 Old myocardial infarction; Z99.2 Dependence on renal dialysis; F01.50 Vascular dementia, unspecified severity, without behavioral disturbance, psychotic disturbance, mood disturbance, and anxiety; I67.2 Cerebral atherosclerosis; E11.22 Type 2 diabetes mellitus with diabetic chronic kidney disease; E21.3 Hyperparathyroidism, unspecified; D63.1 Anemia in chronic kidney disease; Z91.19 Patient's noncompliance with other medical treatment and regimen; Z95.1 Presence of aortocoronary bypass graft; Z87.891 Personal history of nicotine dependence; Z90.49 Acquired absence of other specified parts of digestive tract; Z79.82 Long term (current) use of aspirin; Z79.4 Long term (current) use of insulin
CPT/HCPCS: 36415; 71045; 80048; 80053; 80061; 80074; 82962; 83735; 83880; 84439; 84443; 84484; 85025; 93005; 93306; 94644; 94760; 96365; 96366; 96375; 99285; G0378; J3490; Q9967; C8929; J1815; J1940; J2930; J3475